=== PATIENT | male | born 1995 | race Caucasian/White ===

== ENCOUNTER 2017-01-13 22:26 | Observation (INO) | payer OTHER ==
[~2017-01-13] VITALS: Ht 157.5 cm; Wt 82.0 kg
[2017-01-14] VITALS (13 sets, daily range): BP systolic 121–143; BP diastolic 60–71; PULSE 56–107; RESP 15–19; TEMP 98.9; Ht 157.5 cm; Wt 82.0 kg
[2017-01-14] MEDS ORDERED: SOD CHLORIDE 0.9% 1,000 ML IV STA (01:32)
[2017-01-14] MEDS ORDERED: morphine 4 MG/ML VIAL IV STA (01:32)
[2017-01-14] MEDS ORDERED: ONDANSETRON 4 MG INJ IV STA (01:32)
--- NOTE | 2017-01-14 01:46 | ERD ---
ER Documentation Chief Complaint Date/Time DATE: 01/14/17 TIME: 01:44 Chief Complaint right lower abd pain x 2 days HPI 21-year-old male presents in emergency department for complaints of right lower quadrant abdominal pain for 2 days. Patient described the pain is sharp pain, 8/ 10 scale, is worse upon touching the area. Patient denies any nausea, vomiting, diarrhea or constipation. Patient denies hematuria or dysuria. Patient denies any blood in the stool or black stool. Patient denies any sick contacts. Patient did not take any medications to help with symptoms. ROS All systems reviewed and are negative except as per history of present illness. Medications Home Meds Reported Medications [none] Unknown Strength No Conflict Check 01/14/17 Allergies Allergies: Coded Allergies: No Known Drug Allergies (Verified Allergy, Unknown, 01/13/17) PMhx/Soc Medical and Surgical Hx: pt denies Medical Hx, pt denies Surgical Hx History of Surgery: No Anesthesia Reaction: No Hx Neurological Disorder: No Hx Respiratory Disorders: No Hx Cardiac Disorders: No Hx Psychiatric Problems: No Hx Miscellaneous Medical Probl: No Hx Alcohol Use: No Hx Substance Use: No Hx Tobacco Use: No Smoking Status: Never smoker FmHx Family History: No coronary disease, No diabetes, No other Physical Exam Vitals Vital Signs Date Time Temp Pulse Resp B/P Pulse Ox O2 Delivery O2 Flow Rate FiO2 01/13/17 22:35 99.8 80 20 145/73 98 Physical Exam GENERAL: The patient is well developed and appropriate for usual state of health, in no apparent distress. CHEST: Clear to auscultation bilaterally. There are no rales, wheezes or rhonchi. HEART: Regular rate and rhythm. No murmurs, clicks, rubs or gallops. No S3 or S4. ABDOMEN: Soft, right lower quadrant tenderness noted. Good bowel sounds. No rebound or guarding. No gross peritonitis. No gross organomegaly or masses. BACK: No midline or flank tenderness. EXTREMITIES: Equal pulses bilaterally. There is no peripheral clubbing, cyanosis or edema. No focal swelling or erythema. Full range of motion. Grossly neurovascularly intact. NEURO: Alert and oriented. Cranial nerves 2-12 intact. Motor strength in all 4 extremities with 5/5 strength. Sensation grossly intact. Normal speech and gait. SKIN: There is no apparent rash or petechia. The skin is warm and dry. HEMATOLOGIC AND LYMPHATIC: There is no evidence of excessive bruising or lymphedema. No gross cervical, axillary, or inguinal lymphadenopathy. Result Diagram: 01/14/1715101/14/17 0152 Results 24 hrs Laboratory Tests Test 01/14/17 01:52 Alanine Aminotransferase (ALT/SGPT) 34IU/L Albumin 4.6g/dl Albumin/Globulin Ratio 1.35 Alkaline Phosphatase 96IU/L Anion Gap 17 Aspartate Amino Transf (AST/SGOT) 26IU/L Basophils # 0.110^3/ul Basophils % 0.4% Blood Urea Nitrogen 12mg/dl Calcium Level 9.5mg/dl Carbon Dioxide Level 29mmol/L Chloride Level 103mmol/L Creatinine 0.73mg/dl Direct Bilirubin 0.00mg/dl Eosinophils # 0.510^3/ul Eosinophils % 2.8% Globulin 3.40g/dl Glucose Level 128mg/dl Hematocrit 47.3% Hemoglobin 16.3g/dl Indirect Bilirubin 0.4mg/dl Lipase 54U/L Lymphocytes # 1.510^3/ul Lymphocytes % 8.7% Mean Corpuscular Hemoglobin 30.8pg Mean Corpuscular Hemoglobin Concent 34.5g/dl Mean Corpuscular Volume 89.4fl Mean Platelet Volume 11.3fl Monocytes # 1.710^3/ul Monocytes % 10.4% Neutrophils # 13.010^3/ul Neutrophils % 77.3% Nucleated Red Blood Cells # 0.010^3/ul Nucleated Red Blood Cells % 0.0/100WBC Platelet Count 66832^3/UL Potassium Level 4.1mmol/L Red Blood Count 5.2910^6/ul Red Cell Distribution Width 12.6% Sodium Level 145mmol/L Total Bilirubin 0.4mg/dl Total Protein 8.0g/dl Urine Bilirubin NEGATIVE Urine Clarity CLOUDY Urine Color LT. YELLOW Urine Glucose NEGATIVE% Urine Hemoglobin NEGATIVE Urine Ketones NEGATIVE Urine Leukocyte Esterase NEGATIVE Urine Microscopic RBC Pending Urine Microscopic WBC Pending Urine Nitrite NEGATIVE Urine Specific Reagan 1.015 Urine Total Protein NEGATIVE Urine Urobilinogen 0.2 E.U./dL Urine pH 7.0 White Blood Count 16.810^3/ul Current Medications Medications (Trade) Dose Ordered Sig/Ayla Route PRN Reason Start Time Stop Time Status Last Admin Dose Admin Sodium Chloride (NS) 1,000 ml @ 1,000 mls/hr Q1H STAT IV 01/14/17 01:32 01/14/17 02:31 DC 01/14/17 01:59 Morphine Sulfate (morphine) 4 mg ONCE STAT IV 01/14/17 01:32 01/14/17 01:33 DC 01/14/17 02:00 Ondansetron HCl (Zofran Inj) 4 mg ONCE STAT IV 01/14/17 01:32 01/14/17 01:33 DC 01/14/17 02:00 Patient was given medication for pain here in emergency department, after treatment, patient verbalized feeling much better. Patient's pain is improved.Patient was given Zofran here in the emergency department. After treatment, patient was able to tolerate po fluids here in the emergency department without any vomiting. There is no signs and symptoms of dehydration. Normal saline IV bolus was given here in emergency department for rehydration, patient tolerated IV fluids. PROCEDURE: CT of the abdomen and pelvis without contrast CLINICAL INDICATION: Abdominal Pain. TECHNIQUE: Spiral CT images through the abdomen and pelvis without the use of contrast. The administered radiation dose is CTDI 10.02 and DLP 609.37. One or more of the following dose reduction techniques were used: automated exposure control, adjustment of the mA and/or kV according to patient size, or use of iterative reconstruction technique. COMPARISON: None FINDINGS: Lack of oral and intravenous contrast somewhat limits evaluation. Slight dependent atelectasis of the lung bases is seen. No pleural effusion is seen. The liver, spleen, adrenals, kidneys, and pancreas are unremarkable in appearance. . There is a subtle non dilated tubular structure medial to the cecum which is thought to represent the appendix. This is best seen on coronal image 41. The appendix diameter is top normal, between 6 and 7 mm. There is a suggestion of slight adjacent fat stranding. No definite free air or abscess. There is also slight fat stranding of the omentum in the right upper quadrant seen from axial images 89 through 99. Multiple small nodes are seen throughout the abdomen and pelvis. There is no evidence for small bowel obstruction. The bladder and prostate are unremarkable in appearance. No definite abnormality of the colon. No adenopathy or ascites is seen. No bony abnormality is seen.. IMPRESSION: Structure thought to represent the appendix with top normal diameter but suggestion of subtle associated fat stranding. The appearance may be due to early appendicitis. Correlate clinically. If needed, repeat study with oral contrast could be considered. RPTAT: [facility] Liana Kenny Physician Date Time Electronically viewed and signed by Liana Kenny, Physician on 01/14/2017 02 :54 LE/ CC: ALAN TRAORE ADVENTURE GUIDE Patient has acute appendicitis, patient will patient's for to ER 1 for possible admission, possible needing surgical intervention. Patient is controlled at this time, no symptoms of a ruptured appendix. No symptoms of sepsis at this time. Patient will be transferred to ER 1, stable upon transfer Departure Diagnosis: Primary Impression: Appendicitis Appendicitis type: acute appendicitis Acute appendicitis type: unspecified acute appendicitis type Qualified Code: K35.80 - Acute appendicitis, unspecified acute appendicitis type Condition: Fair ALAN TRAORE NP Jan 14, 2017 01:46
[2017-01-14 02:13] LABS: ADD SCAN DIFF NO
[2017-01-14 02:17] LABS: ABNORMAL IP MESSAGE 1; BASOPHIL # 0.1 10^3/ul (0.0-0.1); BASOPHILS % 0.4 % (0.0-2.0); EOSINOPHILS # 0.5 10^3/ul (0.0-0.5); EOSINOPHILS % 2.8 % (0.0-7.0); HEMATOCRIT 47.3 % (42.0-52.0); HEMOGLOBIN 16.3 g/dl (14.0-18.0); LYMPHOCYTES # 1.5 10^3/ul (0.8-2.9); LYMPHOCYTES % 8.7 % (18.0-55.0); MEAN CORPUSCULAR HEMOGLOBIN 30.8 pg (29.0-33.0); MEAN CORPUSCULAR HGB CONC 34.5 g/dl (32.0-37.0); MEAN CORPUSCULAR VOLUME 89.4 fl (72.0-104.0); MEAN PLATELET VOLUME 11.3 fl (7.4-10.4); MONOCYTE # 1.7 10^3/ul (0.3-0.9); MONOCYTES % 10.4 % (0.0-13.0); NEUTROPHILS % 77.3 % (30.0-74.0); PLATELET COUNT 298 10^3/UL (140-415); RED BLOOD COUNT 5.29 10^6/ul (4.70-6.10); RED CELL DISTRIBUTION WIDTH 12.6 % (11.5-14.5); WHITE BLOOD COUNT 16.8 10^3/ul (4.8-10.8)
[2017-01-14 02:19] LABS: ADD UMIC YES; URINE BILIRUBIN (Dip) NEGATIVE (NEGATIVE); URINE BLOOD (Dip) NEGATIVE (NEGATIVE); URINE COLOR LT. YELLOW (YELLOW); URINE GLUCOSE (Dip) NEGATIVE (NEGATIVE); URINE KETONES (Dip) NEGATIVE (NEGATIVE); URINE LEUKOCYTE ESTERASE (Dip) NEGATIVE (NEGATIVE); URINE NITRITE (Dip) NEGATIVE (NEGATIVE); URINE TOTAL PROTEIN (Dip) NEGATIVE (NEGATIVE); URINE UROBILINOGEN (Dip) 0.2 E.U./dL (0.1-1.0)
[2017-01-14 02:26] LABS: ALBUMIN 4.6 g/dl (3.3-4.9); POTASSIUM 4.1 mmol/L (3.5-5.1)
[2017-01-14 02:29] LABS: ALBUMIN/GLOBULIN RATIO 1.35; BILIRUBIN,INDIRECT 0.4 mg/dl (0-1.1); BILIRUBIN,TOTAL 0.4 mg/dl (0.2-1.3); CREATININE 0.73 mg/dl (0.61-1.24)
[2017-01-14 02:30] LABS: CALCIUM 9.5 mg/dl (8.4-10.2)
--- NOTE | 2017-01-14 02:55 | RADRPT ---
PROCEDURE: CT of the abdomen and pelvis without contrast CLINICAL INDICATION: Abdominal Pain. TECHNIQUE: Spiral CT images through the abdomen and pelvis without the use of contrast. The admin istered radiation dose is CTDI 10.02 and DLP 609.37. One or more of the following dose reduction te chniques were used: automated exposure control, adjustment of the mA and/or kV according to patient size, or use of iterative reconstruction technique. COMPARISON: None FINDINGS: Lack of oral and intravenous contrast somewhat limits evaluation. Slight dependent atelectasis of the lung bases is seen. No pleural effusion is seen. The liver, spleen, adrenals, kidneys, and pancreas are unremarkable in appearance. . There is a solorio btle non dilated tubular structure medial to the cecum which is thought to represent the appendix. This is best seen on coronal image 41. The appendix diameter is top normal, between 6 and 7 mm. Th ere is a suggestion of slight adjacent fat stranding. No definite free air or abscess. There is al so slight fat stranding of the omentum in the right upper quadrant seen from axial images 89 through 99. Multiple small nodes are seen throughout the abdomen and pelvis. There is no evidence for smal l bowel obstruction. The bladder and prostate are unremarkable in appearance. No definite abnormal ity of the colon. No adenopathy or ascites is seen. No bony abnormality is seen.. IMPRESSION: Structure thought to represent the appendix with top normal diameter but suggestion of subtle associ ated fat stranding. The appearance may be due to early appendicitis. Correlate clinically. If nee ded, repeat study with oral contrast could be considered. RPTAT: [facility] Physician Courtney Date Time Electronically viewed and signed by Physician Courtney on 01/14/2017 02:54 LE/
[2017-01-14 04:41] LABS: SQUAMOUS EPITHELIAL CELL,UR RARE; URINE RBCS 0-2 /HPF (0)
[2017-01-14] MEDS ORDERED: PIPER-TAZO 3.375 GM IV (PMX) 100 ML IVPB ONE (06:00)
[2017-01-14] MEDS ORDERED: CEFAZOLIN 1 GM INJ ONE ×2 (07:00→18:37)
[2017-01-14] MEDS ORDERED: ONDANSETRON 4 MG INJ IV PRN ×2 (08:30→19:30)
[2017-01-14] MEDS ORDERED: morphine 4 MG/ML VIAL IV PRN (08:30)
[2017-01-14] MEDS ORDERED: SOD CHLORIDE 0.9% 1,000 ML IV SCH (08:30)
[2017-01-14] MEDS ORDERED: BISACODYL 10 MG SUPP PR PRN ×2 (09:00→19:00)
[2017-01-14] MEDS ORDERED: MAGNESIUM HYDROXIDE 30ML CUP PO PRN (09:00)
[2017-01-14] MEDS ORDERED: DOCUSATE SODIUM 100 MG CAP PO PRN ×2 (09:00→19:00)
[2017-01-14] MEDS ORDERED: NACL 0.9% 3 ML SYG IV SCH (09:00)
[2017-01-14] MEDS ORDERED: ACETAMINOPHEN 325 MG TAB PO PRN (09:00)
[2017-01-14] MEDS ORDERED: HYDROCODONE/APAP (5/325) TAB PO PRN ×4 (09:00→19:00)
--- NOTE | 2017-01-14 09:37 | RADRPT ---
PROCEDURE: Chest x-ray CLINICAL INDICATION: Preop TECHNIQUE: Chest single view COMPARISON: None FINDINGS: The heart is normal in size. The pulmonary vessels are normal in caliber. The lungs are clear. Th e costophrenic angles are sharp. The visualized bony thorax is unremarkable. IMPRESSION: No acute cardiopulmonary disease. RPTAT: HH .Mustapha Walker MD, Date Time Electronically viewed and signed by .Mustapha Walker MD, MD on 01/14/2017 09:36 .W/
--- NOTE | 2017-01-14 10:10 | QN ---
Documentation Comment Observation Note: Time: 4 hours Family Hx: Negative for diabetes Evaluation: Multiple exams showed improving symptoms and no evidence of clinical decompensation. REINALDO GUZMAN MD Jan 14, 2017 10:09
[2017-01-14 10:45] LABS: INR 1.02; PROTIME 13.4 Sec (12.2-14.2)
[2017-01-14 10:46] LABS: PARTIAL THROMBOPLASTIN TIME 36.5 Sec (25.0-35.0)
--- NOTE | 2017-01-14 11:24 | HP ---
DATE OF ADMISSION: 01/13/2017 PRIMARY CARE PHYSICIAN: Unknown. AUTOMATED TELLER MANAGER: Juancarlos Andre MD from general surgery. CHIEF COMPLAINT ON ADMISSION: Abdominal pain. HISTORY OF PRESENT ILLNESS: This is a 21-year-old male with no significant past medical history who presented in the emergency department with complaint of right lower quadrant abdominal pain for 2 d ays. The patient reports that he has been able to eat, but has decreased appetite. No nausea, no v omiting. The pain in his right lower quadrant has been increasing over the past 48 hours with no fu rther extension of it around his abdomen. He denies any fevers. He denies any chills. He denies a ny diarrhea or constipation. He denies any hematemesis or melena. He denies hematuria or dysuria. On his laboratory data, he is noted to have leukocytosis with a white blood cell count of 16.8. He had a CAT scan of the abdomen and pelvis that did show signs of early appendicitis. Dr. Juancarlos eubanks was consulted for general surgery. The patient was started on Zosyn. He is being admitted to a medical/surgical bed pending surgery today. ALLERGIES: NO KNOWN ALLERGIES. PAST MEDICAL HISTORY: None. PAST SURGICAL HISTORY: None. SOCIAL HISTORY: The patient lives with family. He does not drink alcohol and he does not smoke. N o history of illegal drug use. OUTPATIENT MEDICATIONS: None. PHYSICAL EXAMINATION VITAL SIGNS: Temperature 98.5 with a temperature max of 99.8, heart rate of 88, sinus rhythm, respi ratory rate 19, blood pressure 125/77. The patient is saturating 100% on room air. GENERAL: He is alert and oriented x4. He is in no acute distress currently. He seems to be fairly comfortable lying in the stretcher. HEENT: Pupils are equally round and reactive to light. Extraocular muscles are intact. Anicteric sclerae. NECK: No JVD, no thyromegaly noted. HEART: Regular rate and rhythm. No murmur, rubs, or gallops. LUNGS: Clear to auscultation bilaterally. ABDOMEN: Soft, nondistended. He does have right lower quadrant pain with palpation. There is no p ain in the rest of the abdomen. Bowel sounds are decreased. EXTREMITIES: No edema, clubbing or cyanosis. NEUROLOGIC: Grossly intact. LABORATORY DATA: White blood cell count is 16.8, hemoglobin 16.3, hematocrit 47.3, platelet count o f 298. Chemistry with a sodium of 145, potassium 4.1, chloride 103, bicarbonate 29, BUN 12, creatin ine 0.73, glucose of 128, calcium 9.5. Total bilirubin 0.4, AST 26, ALT 34, alkaline phosphatase 96 , albumin 4.6, total protein 8.0. Lipase of 54. Urinalysis is fairly negative. PT, PTT, INR are p ending. RADIOLOGICAL DATA: 1. Chest x-ray shows no acute cardiopulmonary disease. 2. CAT scan of the abdomen and pelvis shows structure thought to represent appendix with norma l diameter, but suggestion of associated fat stranding appearance may be due to early appendicitis. ASSESSMENT AND PLAN: This is a 21-year-old male with: 1. Right lower quadrant abdominal pain, clinically and per CT may be consistent with early appendic itis. He is n.p.o., has been started on Zosyn. Dr. Juancarlos Andre from general surgery has been con sulted for surgical intervention. The patient does not have any previous medical history. He is fa irly young. His chest x-ray is within normal. He does not need any further workup preoperatively, he may proceed with surgery today. His PT, PTT, INR are pending. They have been ordered. 2. Prophylaxis: Sequential compression devices to lower extremity for deep venous thrombosis proph ylaxis. Protonix for gastrointestinal prophylaxis. DISPOSITION: Surgical consult and possible appendectomy. Dictated By: CHINEDU ABBOTT/YAZMIN Conf#: [id number] DID#: [id number]
[2017-01-14] MEDS ORDERED: PIPER-TAZO 3.375 GM IV (PMX) 100 ML IVPB SCH (14:00)
[2017-01-14] MEDS ORDERED: BUPIVACAINE 0.25%/EPI (SDV) 30 ML INJ ONE (17:14)
--- NOTE | 2017-01-14 17:36 | CONS ---
[facility] initial inpatient consultation note. PLACE OF SERVICE: [facility], second floor, [facility] DATE OF CONSULTATION: 01/14/2017 ASSESSMENT AND PLAN: A very pleasant 21-year-old gentleman with only co-morbid issue of a body mass index at 33.1, presenting with acute appendicitis, which appears to be early, but it does require surgical intervention given the patient 's exam and his elevated white blood cell count. I spent quite a bit of time with the patient and his family describing the operation of laparoscopic and possible open appendectomy, and reviewed the risks, benefits, and alternatives, and obtained the patient's consent to do the operation. The patient and his family appeared to understand and wished to proceed with the plans as outlined below. With above assessment, I have recommended the followin. Keep n.p.o. 2. Continue intravenous antimicrobials. 3. To the operating room for laparoscopic, possible open, appendectomy. Thank you again for allowing us to participate in the care of this very pleasant gentleman and his wonderful family. If there are any questions, please feel free to call me at [phone]. TOTAL VISIT TIME: 45 minutes of which more than half was spent in [id number] discussion with the patient, discussions with his parents, as well as coordination of care between multiple physicians and providers. UPDATED CLINICAL SUMMARY: Patient is a very pleasant 21-year-old young man with essentially only co-morbidity of BMI of 33.1, presenting with acute appendicitis to [facility] through the emergency room on 01/14. CO-MORBIDITIES: BMI of 33.1. DATE OF ADMISSION: 01/14/2017 HISTORY OF PRESENT ILLNESS: The patient is a very pleasant otherwise healthy 21 -year-old young gentleman with only co-morbid issue of BMI of 33.1, presenting with 1- to 2-day history of right lower quadrant abdominal pain associated with nausea and no significant vomiting. No other previous episodes. The pain is sharp and at times 10/10 without radiation. No chills. No changes in appetite or in bowel or bladder habits. No blood in the stool or urine. ALLERGIES: NO KNOWN DRUG ALLERGIES. MEDICATIONS: None At home. SOCIAL HISTORY: The patient works in the [email or web address] business of [employer] and [employer]. He does not report any smoking, drinking, or intravenous drug use. FAMILY HISTORY: No major reported medical, surgical, or oncologic problems in the family. REVIEW OF SYSTEMS: Other than the above-mentioned, there are no other pertinent positives or pertinent negatives in a complete 14-point review of systems. PHYSICAL EXAMINATION: GENERAL: Patient appears to be a very pleasant gentleman of descent, appearing stated age, lying in bed comfortably and in no acute distress. BMI is 33.1. VITAL SIGNS: His temperature is 98.9, blood pressure 105/57, pulse 68, respiratory rate 19, pulse oximetry 100% on room air. HEENT: Normocephalic and atraumatic. Extraocular muscles and hearing are grossly intact bilaterally and symmetrically. Sclerae are nonicteric. Oral cavity is clear; oral mucosa appeared to be pink and moist. Dentition: fair. NECK: Supple. There is no lymphadenopathy or JVD. There is no submental, submandibular or supraclavicular lymphadenopathy. CHEST: Rises symmetrically with each breath; patient is breathing comfortably. There are no audible wheezes, rales or rhonchi on the gross exam. HEART: Pulse is regular and palpable on the left wrist. Capillary refill was normal. Carotid pulses are palpable bilaterally and symmetrically in the neck. EXTREMITIES: Lower extremities contain no pitting edema around the ankles bilaterally and symmetrically. ABDOMEN: Soft, nondistended, and tender to palpation in the right lower quadrant. There is no organomegaly, caput medusae, or engorged subcutaneous veins. There is no evidence of ascites. There are no peritoneal signs or guarding.SKIN: Appears to be pink and feels warm to touch. NEUROLOGIC: Awake, alert, and follows commands appropriately. LABORATORY DATA: White blood cell count 16.8, platelet count 298. Electrolytes are essentially normal, and liver function tests and injury parameters are normal. INR is 1.02. Urinalysis is negative. IMAGING: Patient had an abdominal and pelvic CT scan that demonstrated top normal diameter appendix, with subtle suggestions of associated fat stranding, possibly consistent with early acute appendicitis. Dictated By: ALEXA BRYSON/YAZMIN Conf#: [id number] DID#: [id number]
[2017-01-14] MEDS ORDERED: FENTAnyl 50 MCG/ML VIAL ONE (17:47)
--- NOTE | 2017-01-14 17:49 | OPR ---
Date/Time of Note Date/Time of Note DATE: 01/14/17 TIME: 17:49 Operative Report Procedure Description [facility] INPATIENT OPERATIVE NOTE PLACE OF SERVICE: [facility] DATE OF SURGERY: 01/14/2017 PREOPERATIVE DIAGNOSIS: 1. Acute appendicitis POSTOPERATIVE DIAGNOSIS: 1. Acute appendicitis OPERATION: 1. Laparoscopic appendectomy SURGEON: Alexa Garcia M.D. MODEL AND PATTERN SUPERVISOR: None ANESTHESIA: General endotracheal tube anesthesia ANESTHESIOLOGIST: Abdoul Cordova M.D. BRIEF SUMMARY: An otherwise uncomplicated laparoscopic appendectomy was performed with findings of non-perforated appendicitis. BRIEF HISTORY: The patient is a very pleasant otherwise healthy 21-year-old young gentleman with only comorbid issues of BMI 33.1 who was admitted through the emergency department at [facility] with diagnosis of acute appendicitis as suggested by his history and physical, elevated white blood cell count, and subtle findings on the CT scan. I met with the patient and family that included his father and stepmother and counseled them regarding the possible options of treatment, and I strongly suggested a laparoscopic, possible open appendectomy. We reviewed the operation in detail as well as the risks, benefits, alternatives, and expected outcomes of this operation. After careful consideration of all the risks, benefits, and alternatives, the patient and family appeared to understand those risks and wished to proceed with surgery. For a detailed report of my consultation with patient and family, please refer to my separate consultation note. STATEMENT OF THE INFORMED CONSENT: The patient and family appeared to understand the risks of the operation to include, but not be limited to risk of postoperative pain and scar tissue, possible infection or bleeding requiring other interventions such as opening the wound, placement of drainage catheters, or other operative interventions; possible injury to surrounding to structures including bowel, bladder, bile duct, or blood vessels, or solid organs such as liver, kidney, or pancreas requiring other interventions or procedures; possible leakage of bowel from anastomotic sites or suture lines causing significant increase in morbidity and mortality and requiring multiple interventions including but not limited to, placement of drainage catheters, imaging studies, as well as operative interventions; possible other source of sepsis such as urinary tract infections or pneumonias, or other sources of potentially life threatening problems such as deep venous thrombus formation causing pulmonary embolism, myocardial arrhythmias and infarctions, and even . After careful consideration of all their options, the patient and family appeared to understand and wished to proceed with surgery. DESCRIPTION OF PROCEDURE: After obtaining informed consent, the patient was brought into the operating room and was placed in a normal supine position, where successful general endotracheal tube anesthesia was performed. Intravenous access was already in place and intravenous antimicrobials had been appropriately chosen and dosed prior to the operation. The patient's abdominal skin was prepped and draped from the nipple line down to the level of the upper thighs in the usual sterile fashion. We then called a surgical time-out where the patient's identification, date of , nature of the operation, allergies , presence of intravenous antimicrobials, presence of needed equipment, and any other concerns were reviewed and agreed upon by all members of the operating room team. We then started the operation by placing a 5 mm skin incision in the left lower quadrant and then introduced a 5 mm [employer] trocar into the peritoneal space, visualizing all the layers of the abdominal wall as we entered. Note that there was no indication of any injury to underlying structures with our entry into the peritoneal space. We insufflated the abdominal cavity to a maximum pressure of 15 mmHg and again inspected the area of insertion and ensured no obvious injury to underlying structures prior to inspecting the abdominal cavity and showing no obvious pus, bowel contents, or other abnormal features. We could not see the appendix very well. We, therefore, injected the future sites of our other trocars with 0.25% Marcaine with epinephrine and placed a 5 mm [employer] trocar into the midline suprapubic area, taking care not to injure the bladder. Note that the patient had not urinated prior to the operation, and bladder was somewhat full. We also placed a 12 mm trocar in the umbilical midline area, all under direct visualization. With our instruments in place, we had excellent visualization and access to the right lower quadrant. We then identified the appendix, which was inflamed but had a normal base coming out of the cecum. I then went ahead and used judicious amount of cautery as well as mostly blunt dissection to circumferentially isolate the base of the appendix and then transected this using one firing of the white load of the Endo -ALBERT stapler. We also repeated the firing on the mesentery of the appendix and completely disconnected the organ from the colon, delivered this out through the 12 mm trocar site inside of an EndoCatch bag without having to enlarge the fascial defect as well as without contaminating the wound. The specimen was sent to Pathology for further analysis. We then ensured adequate hemostasis and bile stasis, removed all our equipment including the pneumoperitoneum from the abdominal cavity prior to closing the infraumbilical fascia with 1 figure-of- eight 0 Vicryl suture on a UR-6 needle, washing the wounds with copious amounts of normal saline, injecting the initial insertion point of the trocar with 0.25 % Marcaine with epinephrine, and then closing the skin using interrupted 4-0 Monocryl sutures. Light dressing was then applied. At the end of the operation, both the sponge count and needle count were reportedly correct x2. The patient tolerated the procedure without any reported complications. ESTIMATED BLOOD LOSS: Less than 10 mL. BLOOD OR BLOOD PRODUCT TRANSFUSIONS: None to my knowledge. SPECIMENS: 1. Appendix COMPLICATIONS: None. DISPOSITION: Recovery area. Disclaimer: Inadvertent spelling and grammatical errors are likely due to EHR/ dictation software use and do not reflect on the quality of delivered patient care. ALEXA GARCIA M.D. Jan 14, 2017 17:49
[2017-01-14] MEDS ORDERED: GLYCOPYRROLATE 0.4 MG INJ ONE (18:37)
[2017-01-14] MEDS ORDERED: PROPOFOL 40 ML ONE (18:37)
[2017-01-14] MEDS ORDERED: ROCURONIUM 50 MG INJ ONE (18:37)
[2017-01-14] MEDS ORDERED: SUCCINYLCHOLINE CHLORIDE 100 MG/5 ML SYG IV ONE (18:37)
[2017-01-14] MEDS ORDERED: NEOSTIGMINE 3 MG/3 ML SYRINGE ONE (18:37)
[2017-01-14] MEDS ORDERED: ROPIVACAINE 0.5 % 30 ML VIAL ONE (18:37)
[2017-01-14] MEDS ORDERED: HYDROmorphONE 1 MG/ML SYG IV PRN ×2 (19:00)
[2017-01-14] MEDS ORDERED: NA PHOSPHATE/BIPHOS 133 ML ENEMA PR PRN (19:00)
[2017-01-14] MEDS ORDERED: ALBUTEROL 0.5% (NEB) 2.5 MG/0.5 ML AMP INH ONE (19:30)
[2017-01-14] MEDS ORDERED: OXYCODONE/ACETAMINOPHEN (5/325) TAB PO PRN (19:30)
[2017-01-14] MEDS ORDERED: HYDROmorphONE (0.2 MG/ML) 10ML SYG IV PRN ×3 (19:30)
[2017-01-14] MEDS ORDERED: MEPERIDINE 25 MG INJ IV PRN (19:30)
[2017-01-14] MEDS ORDERED: METOCLOPRAMIDE 10 MG INJ IV PRN (19:30)
[2017-01-14] MEDS ORDERED: DIPHENHYDRAMINE 50 MG INJ IV PRN (19:30)
[2017-01-14] MEDS ORDERED: FENTAnyl 50 MCG/ML VIAL IV PRN ×2 (19:30)
[2017-01-14] MEDS: D5W-0.45 NACL + KCL 20 MEQ 1,000 ML IV SCH (20:54)
[2017-01-15] MEDS: D5W-0.45 NACL + KCL 20 MEQ 1,000 ML IV SCH ×2 (04:47→09:00)
[2017-01-15 05:58] LABS: ADD SCAN DIFF NO
[2017-01-15] MEDS ORDERED: PANTOPRAZOLE 40 MG INJ IV SCH (06:00)
[2017-01-15 06:08] LABS: BASOPHILS % 0.3 % (0.0-2.0); EOSINOPHILS # 0.4 10^3/ul (0.0-0.5); EOSINOPHILS % 3.9 % (0.0-7.0); HEMATOCRIT 45.2 % (42.0-52.0); HEMOGLOBIN 15.5 g/dl (14.0-18.0); LYMPHOCYTES # 1.5 10^3/ul (0.8-2.9); LYMPHOCYTES % 15.7 % (18.0-55.0); MEAN CORPUSCULAR HEMOGLOBIN 30.8 pg (29.0-33.0); MEAN CORPUSCULAR HGB CONC 34.3 g/dl (32.0-37.0); MEAN CORPUSCULAR VOLUME 89.9 fl (72.0-104.0); MEAN PLATELET VOLUME 11.6 fl (7.4-10.4); MONOCYTE # 1.2 10^3/ul (0.3-0.9); MONOCYTES % 12.8 % (0.0-13.0); NEUTROPHIL # 6.4 10^3/ul (1.6-7.5); PLATELET COUNT 304 10^3/UL (140-415); RED BLOOD COUNT 5.03 10^6/ul (4.70-6.10); RED CELL DISTRIBUTION WIDTH 12.4 % (11.5-14.5); WHITE BLOOD COUNT 9.5 10^3/ul (4.8-10.8)
[2017-01-15 06:21] LABS: POTASSIUM 4.3 mmol/L (3.5-5.1)
[2017-01-15 06:23] LABS: CREATININE 0.7 mg/dl (0.61-1.24)
[2017-01-15 07:54] VITALS: BP 122/59; RESP 21
[2017-01-15] MEDS ORDERED: ENOXAPARIN 40 MG/0.4 ML SYG SC SCH (09:00)
[2017-01-15] MEDS ORDERED: FAMOTIDINE 20 MG INJ IV SCH (09:00)
--- NOTE | 2017-01-15 10:22 | PN ---
Date/Time of Note Date/Time of Note DATE: 01/15/17 TIME: 10:15 Assessment/Plan VTE Prophylaxis VTE Prophylaxis Intervention: ambulation, SCD's Lines/Catheters IV Catheter Type (from Nrsg): Peripheral IV Assessment/Plan Assessment/Plan 21-year-old male: 1. Acute appendicitis, POD #1 s/p lap appendectomy Labs wnl D/c plan home today with PCP follow up and follow up with Dr Andre within 1 week. Prophylaxis: Sequential compression devices to lower extremities and ambulation for deep venous thrombosis prophylaxis. Protonix for gastrointestinal prophylaxis. DISPOSITION: D/c home with f/u with Dr Andre in 1 week Subjective 24 Hr Interval Summary Free Text/Dictation Patient doing well on POD#1 No complaints Pain controlled and passing gas, diet to be advanced to regular for Lunch with d /c plan home after lunch Exam/Review of Systems Vital Signs Vitals Vital Signs Date Time Temp Pulse Resp B/P Pulse Ox O2 Delivery O2 Flow Rate FiO2 01/15/17 07:54 99.2 53 21 122/59 97 01/14/17 19:49 Room Air 01/14/17 19:24 2.0 Intake and Output 01/14/17 01/14/17 01/15/17 15:00 23:00 07:00 Intake Total 100 ml 1050 ml Output Total 5 ml 300 ml Balance 95 ml 750 ml Exam Constitutional: alert, oriented, well developed Cardiovascular: nl pulses, regular rate and rhythm Gastrointestinal: non-tender, soft Musculoskeletal: nl extremities to inspection Extremities: normal pulses, other (no edema, clubbing or cyanosis ) Neurological: MEDICAL OR SURGICAL INSTRUMENT MAKER II-XII intact, nl mental status, nl speech, nl strength Results Result Diagram: 01/15/17 0500 01/15/17 0500 Results 24 hrs Laboratory Tests Test 01/14/17 10:20 01/15/17 05:00 Activated Partial Thromboplast Time 36.5 H INR International Normalized Ratio 1.02 Prothrombin Time 13.4 Prothrombin Time Ratio 1.0 Anion Gap 16 Basophils # 0.0 Basophils % 0.3 Blood Urea Nitrogen 10 Calcium Level 9.0 Carbon Dioxide Level 27 Chloride Level 104 Creatinine 0.70 Eosinophils # 0.4 Eosinophils % 3.9 Glucose Level 103 Hematocrit 45.2 Hemoglobin 15.5 Lymphocytes # 1.5 Lymphocytes % 15.7 L Magnesium Level 1.9 Mean Corpuscular Hemoglobin 30.8 Mean Corpuscular Hemoglobin Concent 34.3 Mean Corpuscular Volume 89.9 Mean Platelet Volume 11.6 H Monocytes # 1.2 H Monocytes % 12.8 Neutrophils # 6.4 Neutrophils % 67.0 Nucleated Red Blood Cells # 0.0 Nucleated Red Blood Cells % 0.0 Platelet Count 304 Potassium Level 4.3 Red Blood Count 5.03 Red Cell Distribution Width 12.4 Sodium Level 143 White Blood Count 9.5 # Medications Medications Current Medications Morphine Sulfate (morphine) 4 mg Q4H PRN IV pain Last administered on 01/15/17 09:01; Admin Dose 4 MG; Start 01/14/17 at 08:30 Ondansetron HCl (Zofran Inj) 4 mg Q4H PRN IV nausea; Start 01/14/17 at 08:30 Acetaminophen (Tylenol Tab) 650 mg Q6H PRN PO PAIN LEVEL 1-3 OR FEVER; Start at 09:00 Acetaminophen/ Hydrocodone Bitart ([place] (5/325)) 1 tab Q6H PRN PO MODERATE PAIN LEVEL 4-6; Start 01/14/17 at 09:00 Acetaminophen/ Hydrocodone Bitart ([place] (5/325)) 2 tab Q6H PRN PO SEVERE PAIN LEVEL 7-10; Start 01/14/17 at 09:00 Docusate Sodium (Colace) 100 mg Q12H PRN PO CONSTIPATION; Start 01/14/17 at 09: 00 Magnesium Hydroxide (Milk Of Mag) 30 ml DAILY PRN PO CONSTIPATION; Start at 09:00 Bisacodyl 10 mg 10 mg DAILY PRN ID CONSTIPATION; Start 01/14/17 at 09:00 Potassium Chloride/Dextrose/ Sod Cl (D5-1/2ns + KCl 20 Meq) 1,000 ml @ 100 mls/ hr Q10H IV Last administered on 01/15/17 09:00; Admin Dose 100 MLS/HR; Start at 18:47 Acetaminophen/ Hydrocodone Bitart ([place] (5/325)) 1 tab Q4H PRN PO PAIN LEVEL 4 -7; Start 01/14/17 at 19:00 Acetaminophen/ Hydrocodone Bitart ([place] (5/325)) 2 tab Q4H PRN PO PAIN LEVEL 7 -10; Start 01/14/17 at 19:00 Hydromorphone HCl (Dilaudid) 0.5 mg Q2H PRN IV PAIN; Start 01/14/17 at 19:00 Hydromorphone HCl (Dilaudid) 1 mg Q2H PRN IV PAIN; Start 01/14/17 at 19:00 Docusate Sodium (Colace) 100 mg BID PRN PO CONSTIPATION; Start 01/14/17 at 19:00 Bisacodyl (Dulcolax Supp) 10 mg BID PRN ID CONSTIPATION; Start 01/14/17 at 19:00 Sodium Biphosphate/ Sodium Phosphate (Fleet Enema) 133 ml BID PRN ID CONSTIPATION; Start 01/14/17 at 19:00 Famotidine (Pepcid Iv) 20 mg DAILY IV Last administered on 01/15/17 08:25; Admin Dose 20 MG; Start 01/15/17 at 09:00 Enoxaparin Sodium (Lovenox) 40 mg DAILY SC Last administered on 01/15/17 08:27 ; Admin Dose 40 MG; Start 01/15/17 at 09:00 CHINEDU HUBBARD Jan 15, 2017 10:22
--- NOTE | 2017-01-15 10:25 | PDOCDIS ---
Discharge Instructions CONDITION Patient Condition: Good HOME CARE INSTRUCTIONS: Diet Instructions: Regular ACTIVITY: Activity Restrictions: No Restrictions Avoid heavy lifting No Sexual Activity Avoid Heavy Housework FOLLOW UP/APPOINTMENTS Appointments Follow up with PCP within 1 week Follow up with Dr Juancarlos Andre within 1 week CHINEDU HUBBARD Jan 15, 2017 10:25
[2017-01-15] MEDS ORDERED: HYDR-3498 PO (10:27)
[2017-01-15] MEDS ORDERED: DOCU-216 PO (10:53)
--- NOTE | 2017-01-15 17:24 | PN ---
Date/Time of Note Date/Time of Note DATE: 01/15/17 TIME: 17:22 Assessment/Plan Lines/Catheters IV Catheter Type (from Nrsg): Peripheral IV Assessment/Plan Assessment/Plan [facility] Progress Note Date of Service: 01/15/17 Today's Impression & Plan: Overall doing well post op without major issues. No major wound problems. May d/ c home. With above assessment, I've recommended the following for today: 1. F/u with PCP 2. F/u with us in 1-2 weeks 3. Please include the following in d/c instructions: Please call [phone] if any of fever, nausea, vomiting, discharge from wound , wound redness, increase or sudden pain, blood in stool or vomit, or any other unusual signs or symptoms. Also, please call the same number in a few days to schedule an appointment for your follow up visit. Patient may remove dressings tomorrow. Showers OK starting tomorrow. No swimming , hot tub or bath for 2 weeks. No lifting more than 25 lbs for 8 weeks. Thank you again for your great care of this very pleasant patient and wonderful family. If there are any questions, please feel free to call me at [phone]. TOTAL VISIT TIME: 20 minutes of which more than half was spent in [id number] discussion with the patient, possibly including family, as well as coordination of care between multiple physicians and providers. Disclaimer: Inadvertent spelling or grammatical errors are likely due to EHR/ dictation software use and do not reflect on the overall quality of patient care. Updated Clinical Summary: UPDATED CLINICAL SUMMARY: Patient is a very pleasant 21-year-old young man with essentially only co-morbidity of BMI of 33.1, presenting with acute appendicitis to [facility] through the emergency room on 01/14. S/p lap appy 01/14/17. CO-MORBIDITIES: 1. BMI of 33.1. 2. Acute appendicitis 01/14/17; s/p lap appy 01/14/17 Subjective: No major events or complaints; no abd pain and under control with medications; no n/v/d; no sob or cp; + flatus; - BM; minimal activity Objective: Vitals: See below Exam: GENERAL: On exam, the patient was laying in bed and appeared to be comfortable and in no acute distress. ABDOMEN: Soft, nontender and nondistended. Incision dressings are clean, dry and intact without any evidence of erythema, edema, discharge, or hernia. There are no peritoneal signs or guarding. SKIN: Skin appears to be pink and feels warm to touch. NEUROLOGIC: Patient is awake, alert, and follows commands appropriately. Exam/Review of Systems Vital Signs Vitals Vital Signs Date Time Temp Pulse Resp B/P Pulse Ox O2 Delivery O2 Flow Rate FiO2 01/15/17 07:54 99.2 53 21 122/59 97 01/14/17 19:49 Room Air 01/14/17 19:24 2.0 Intake and Output 01/14/17 01/14/17 01/15/17 15:00 23:00 07:00 Intake Total 100 ml 1050 ml Output Total 5 ml 300 ml Balance 95 ml 750 ml Results Result Diagram: 01/15/17 0500 01/15/17 0500 ALEXA GARCIA M.D. Jan 15, 2017 17:24
--- NOTE | 2017-01-30 20:45 | DS ---
DATE OF ADMISSION: 01/14/2017 DATE OF DISCHARGE: 01/15/2017 ADMITTING PHYSICIAN: Dr. Rockwell DISCHARGING PHYSICIAN: Dr. Rockwell CUSTOMER SU[employer] DURING THIS ADMISSION: Dr. Juancarlos Andre from General Surgery. CHIEF COMPLAINT ON ADMISSION: Abdominal pain. BRIEF HISTORY OF PRESENT ILLNESS: This is a 21-year-old male with no significant past medical histo ry who presented in the emergency department with complaint of right lower quadrant pain for 2 days, was diagnosed with acute appendicitis. Therefore, Dr. Andre was consulted for General Surgery for planned appendectomy. The patient was started on Zosyn. HOSPITAL COURSE: The patient was started on Zosyn. He was taken to the operating room and had unco mplicated laparoscopic appendectomy for acute appendicitis. Postoperatively, he did well. No compl ication. He tolerated p.o. well. He was passing gas by the next day on 01/15/2017. He was dischar ged home in stable condition. DISPOSITION: Discharge home. DISCHARGE CONDITION: Stable. DISCHARGE DIET: Regular diet. DISCHARGE ACTIVITY: The patient is to avoid heavy lifting, heavy housework. Otherwise, no restrict ion. FOLLOWUP: The patient is to follow up with his primary care physician within 1 week and follow up halima Andre in 1 week. DISCHARGE DIAGNOSIS: Acute appendicitis, status post laparoscopic appendectomy. DISCHARGE MEDICATIONS: 1. Colace 100 mg p.o. 12 hours as needed for constipation. 2. [place]ree 5/325 one tablet p.o. q.8 hours p.r.n. pain. Dictated By: CHINEDU ABBOTT/NTS Conf#: [id number] DID#: [id number]
== END 2017-01-15 16:17 | disposition home or self-care (01) ==
LOC: FTE 22:26 → INTOOBSV 01-14 14:48 → PP2 01-14 14:48
PROVIDERS: ADMIT Legal Medicine; ATTEND Legal Medicine
DX: K35.80 Unspecified acute appendicitis (principal); E66.9 Obesity, unspecified; Z68.33 Body mass index [BMI] 33.0-33.9, adult
CPT/HCPCS: 36415; 44970; 71010; 74176; 80048; 80053; 81001; 83690; 83735; 85025; 85610; 85730; 88304; 96374; 96375; 96376; 99285; G0378; J0330; J0690; J1650; J2270; J2405; J2543; J2710; J2795; J3010; J3480; J7030; 81003; J1170

== ENCOUNTER 2017-01-22 14:46 | Outpatient (CLI) | payer OTHER ==
[~2017-01-22] VITALS: Ht 167.6 cm; Wt 81.4 kg
[~2017-01-22 14:46] MED LIST: DOCU-216 PO; HYDR-3498 PO
[2017-01-22 14:57] VITALS: BP 124/59; PULSE 63; RESP 16; Ht 167.6 cm; Wt 81.4 kg
--- NOTE | 2017-01-22 17:07 | PN ---
Date/Time of Note Date/Time of Note DATE: 01/22/17 TIME: 16:59 Assessment/Plan Assessment/Plan Assessment/Plan [facility] Progress Note Date of Service: 01/22/17 Today's Impression & Plan: Overall doing well post op without major issues. No major wound problems. No evidence for any wound infection, hernia, or other post operative surgical problems. With above assessment, I've recommended the following for today: 1. F/u with PCP 2. F/u with us prn Thank you again for your great care of this very pleasant patient and wonderful family. If there are any questions, please feel free to call me at [phone]. TOTAL VISIT TIME: 20 minutes of which more than half was spent in [id number] discussion with the patient, possibly including family, as well as coordination of care between multiple physicians and providers. Disclaimer: Inadvertent spelling or grammatical errors are likely due to EHR/ dictation software use and do not reflect on the overall quality of patient care. Updated Clinical Summary: UPDATED CLINICAL SUMMARY: Patient is a very pleasant 21-year-old young man with essentially only co-morbidity of BMI of 33.1, presenting with acute appendicitis to [facility] through the emergency room on 01/14. S/p lap appy 01/14/17. D/c home 01/15/17. Final path: MICROSCOPIC DIAGNOSIS: Appendix: -- Early acute appendicitis. -- There is no evidence of malignancy. CO-MORBIDITIES: 1. BMI of 33.1. 2. Acute appendicitis 01/14/17; s/p lap appy 01/14/17 Subjective: No major events or complaints since discharge; no abd pain and under control with medications; no n/v/d; no sob or cp; + flatus; + BM; + activity Objective: Vitals: See below Exam: GENERAL: On exam, the patient was sitting in a chair and appeared to be comfortable and in no acute distress. BMI 29. ABDOMEN: Soft, nontender and nondistended. Incisions are clean, dry and intact without any evidence of erythema, edema, discharge, or hernia. There are no peritoneal signs or guarding. SKIN: Skin appears to be pink and feels warm to touch. NEUROLOGIC: Patient is awake, alert, and follows commands appropriately. Exam/Review of Systems Vital Signs Vitals Vital Signs Date Time Temp Pulse Resp B/P Pulse Ox O2 Delivery O2 Flow Rate FiO2 01/22/17 14:57 98.2 63 16 124/59 96 Room Air ALEXA GARCIA M.D. Jan 22, 2017 17:07
== END 2017-01-22 16:49 | disposition home or self-care (01) ==
LOC: HPC 14:46
PROVIDERS: ATTEND Transplant Surgery
DX: K35.80 Unspecified acute appendicitis (principal)
CPT/HCPCS: G0463